=== PATIENT | male | born 1965 | race Two or more races ===

== ENCOUNTER 2023-06-05 06:00 | Emergency (ER) | payer SELFPAY ==
[~2023-06-05] VITALS: Ht 177.8 cm; Wt 120.0 kg
[2023-06-05 06:39] LABS: BASOPHILS % (AUTO) 0.3 % (0-1); EOSINOPHILS % (AUTO) 0.7 % (0-6); HEMATOCRIT 43.3 % (42.0-52.0); HEMOGLOBIN 14.5 g/dl (14.0-17.9); LYMPHOCYTES # (AUTO) 1.4 X10'3 (1.1-4.8); LYMPHOCYTES % (AUTO) 22.7 % (21-51); MEAN CORPUSCULAR HEMOGLOBIN 27.7 PG (27.0-31.0); MEAN CORPUSCULAR HGB CONC 33.5 g/dL (33.0-36.5); MEAN CORPUSCULAR VOLUME 82.6 FL (78-98); MEAN PLATELET VOLUME 7.2 FL (7.4-10.4); MONOCYTES # (AUTO) 0.5 X10'3 (0-0.9); MONOCYTES % (AUTO) 9.1 % (2-12); NEUTROPHILS % (AUTO) 67.2 % (42-75); PLATELET COUNT 211 X10'3 (140-440); RED BLOOD COUNT 5.24 X10'6 (4.70-6.10); RED CELL DISTRIBUTION WIDTH 13.9 % (11.5-14.5)
[2023-06-05 06:55] LABS: ALBUMIN 3.4 G/DL (3.4-5.0); ANION GAP 6 (8-16); BLOOD UREA NITROGEN 13 MG/DL (7-18); BUN/CREATININE RATIO 10.7 (10.0-20.0); CALCIUM 8.4 MG/DL (8.5-10.1); CHLORIDE 103 MMOL/L (99-107); CREATININE 1.21 MG/DL (0.60-1.10); GLUCOSE 125 MG/DL (70-104); SODIUM 136 MMOL/L (135-145); TOTAL CARBON DIOXIDE 27.3 MMOL/L (24-32); eCRCL 67 ML/MIN; eGFR 61 ML/MIN
[2023-06-05] MEDS: mag hydrox/Alum hydrox/simeth 30ml oral suspension PO ONE (06:57)
[2023-06-05] MEDS: famotidine/PF 10 mg/ml inj IV ONE (06:59)
[2023-06-05] MEDS: LIDOcaine 2% Viscous 15ml cup MM ONE (06:59)
[2023-06-05 08:32] VITALS: TEMP 98.2
[2023-06-05 08:32] LABS: PRO BRAIN NATRIURETIC PEPTIDE < 30 PG/ML (0-125)
[2023-06-05 10:11] VITALS: BP 184/120; PULSE 71; RESP 18; O2SAT 99
== END 2023-06-05 10:13 | disposition home or self-care (01) ==
LOC: ER 06:01
DX: R07.89 Other chest pain (principal); K21.9 Gastro-esophageal reflux disease without esophagitis; R06.00 Dyspnea, unspecified
CPT/HCPCS: 36415; 71045; 80048; 83880; 84484; 85025; 93005; 96374; 99285; J3490